=== PATIENT | female | born 1980 | race Caucasian/White ===

== ENCOUNTER 2021-08-24 03:38 | Emergency (ER) | payer BC, SELFPAY ==
--- NOTE | ~2021-08-24 | XR_ITS ---
EXAMINATION: XR chest 2V EXAM DATE: 08/24/2021 04:21 INDICATION: Chest pressure, pain. TECHNIQUE: Frontal and lateral projections of the chest obtained and reviewed. There is no prior mera dy for comparison. FINDINGS: The lungs are clear. There are no pleural effusions. The cardiomediastinal silhouette is within normal limits. There is no pneumothorax suspected. The bones and soft tissues are unremarkab le. IMPRESSION: No acute cardiopulmonary findings. Reviewed, dictated and finalized at location A. SUSTAIN[employer] SPECIALIST
[2021-08-24 03:41] VITALS: BP 126/85; PULSE 79; RESP 18; TEMP 36.3; O2SAT 100
--- NOTE | 2021-08-24 03:49 | ECG_ITS ---
Measurements Intervals [place] Rate: 77 P: 23 [place]: 126 QRS: 52 QRSD: 82 T: 41 QT: 340 QTc: 386 Interpretive Statements SINUS RHYTHM BASELINE WANDER- II, III NORMAL ECG Electronically Signed On 08-24-2021 7:21:58 [employer]IOR [employer] WRITER by Marlo Jordan D.O.
[2021-08-24 04:25] LABS: Basophils Absolute Auto 0.1 K/mm3 (0.0-0.1); Basophils Percent Auto 0.6 % (0.2-1.2); Eosinophils Absolute Auto 0.2 K/mm3 (0-0.3); Hematocrit 48.2 % (37.0-47.0); Hemoglobin 16.5 g/dL (12.0-15.0); Immature Granulocyte Absolute 0.02 K/mm3 (0.00-0.031); Immature Granulocyte Percent A 0.2 % (0-0.5); Lymphocytes Absolute Auto 1.56 K/mm3 (0.9-3.2); Lymphocytes Percent Auto 17.3 % (18.3-44.2); Mean Corpuscular HGB Conc 34.2 g/dl (32-36); Mean Corpuscular Hemoglobin 29.8 pg (26-34); Mean Corpuscular Volume 87.2 fl (80-100); Mean Platelet Volume 9.1 fl (7.4-10.4); Monocytes Absolute Auto 0.6 K/mm3 (0.1-0.6); Monocytes Percent Auto 6.7 % (2.6-8.5); Neutrophils Absolute Auto 6.6 K/mm3 (1.3-6.7); Neutrophils Percent Auto 73.2 % (45.5-73.1); Platelet Count Result 378 k/mm3 (150-375); Red Blood Count 5.53 M/mm3 (4.2-5.4); Red Cell Distribution Width 13.2 % (11.5-14.5)
[2021-08-24 04:36] LABS: Partial Thromboplastin Time 28.8 SECONDS (22.3-36.8)
[2021-08-24 04:38] LABS: Alanine Aminotransferase 21 U/L (4-35); Albumin Level 4.2 g/dL (3.5-5.1); Alkaline Phosphatase 74 U/L (38-126); Anion Gap 5 mmol/L (8-16); Aspartate Amino Transferase 23 U/L (14-36); Bilirubin,Total 0.6 mg/dL (0.2-1.3); Blood Urea Nitrogen 10 mg/dL (7-17); Calcium 9.2 mg/dL (8.4-10.2); Carbon Dioxide 28 mmol/L (22-30); Chloride 105 mmol/L (98-107); Estimated Glomerular Filt Rate > 60; Glucose 131 mg/dL (65-110); Lipase 116 U/L (23-300); Potassium 4.2 mmol/L (3.4-5.0); Sodium 138 mmol/L (137-145)
[2021-08-24 04:49] LABS: Troponin I < 0.012 ng/mL (0.000-0.034)
[2021-08-24] MEDS: LIDOCAINE HCL 2% VISC SOLN 15 ML UDC 20 ML PO (05:08)
[2021-08-24] MEDS: MAG HYDROX/AL HYDROX/SIMETH 30 ML UDC PO (05:08)
[2021-08-24 05:11] LABS: D Dimer 0.27 ug/mL (<0.48)
[2021-08-24 05:43] VITALS: BP 136/95; PULSE 83; RESP 20; O2SAT 96
[2021-08-24] MEDS: KETOROLAC 15 MG/ML VIAL (*BKC) IV PUSH (06:34)
[2021-08-24 06:35] VITALS: BP 116/86; PULSE 80; RESP 20; O2SAT 99
--- NOTE | 2021-08-24 06:55 | ED.CHESTPAIN ---
HPI - Chest Pain General Chief Complaint: Chest Pain Stated Complaint: Chest pain Time Seen by Provider: 08/24/21 04:44 Source: patient History of Present Illness HPI narrative: Patient presents with epigastric and left-sided chest pain. Symptoms started last night symptoms described as a pressure sharp sensation. There are no clear aggravating or alleviating factors do not appear to be a positional component or association with food or diet. Pain does radiate to her back she denies cough or congestion denies recent fevers or lightheadedness denies any nausea or vomiting or diarrhea. She denies significant family history of cardiac disease history of bleeding or clotting disorders recent travel recent hospitalizations, family history of collagen disorders. Related Data Allergies Allergy/AdvReac Type Severity Reaction Status Date / Time iodine Allergy Unknown Skin Verified 08/24/21 03:55 irritation Contrast Media Allergy Intermediate UNKNOWN Uncoded 08/24/21 03:55 Review of Systems Review of Systems: CONSTITUTIONAL: Denies fever, chills, or sweats. EYES: Denies visual changes, redness, or discharge. ENT: Denies rhinorrhea, congestion, sore throat, or otalgia. CARDIOVASCULAR: Denies palpitations, or edema. RESPIRATORY: Denies cough or dyspnea. GASTROINTESTINAL: Denies nausea, vomiting, or diarrhea. GENITOURINARY: Denies dysuria or hematuria. SKIN: Denies rash or itching. MUSCULOSKELETAL: Denies back pain, joint pain, or myalgia. NEUROLOGIC: Denies headache, numbness, dizziness, or weakness. PSYCHIATRIC: Denies anxiety or depression. [facility] Past Medical History Medical History ADD (attention deficit disorder) RENZO (generalized anxiety disorder) GERD without esophagitis Insomnia Labral tear of shoulder Migraines Family History Family History Mother Diabetes mellitus Family history of bipolar disorder Grandparent Diabetes mellitus Hypertension Family history of cardiovascular disease Family history of malignant neoplasm of breast in first degree relative Father Hypertension Malignant neoplasm of prostate Social History Social History Smoking status: Former smoker Second hand tobacco smoke exposure: No Smoking end date: 10/04/07 Alcohol intake: current Alcohol use details: Barely. Substance use: never Substance use type: does not use Exam Narrative: GENERAL: Well-appearing, well-nourished, and in no acute distress. HEAD: Normocephalic, atraumatic. EYES: PERRLA and EOMI. ENT: Nares clear, no rhinorrhea or epistaxis. Mucous membranes moist. NECK: Supple. No masses. No JVD CHEST: Clear to auscultation. No respiratory distress. No wheezes rales or rhonchi HEART: Regular rate and rhythm. No murmur heard. Normal peripheral pulses. ABDOMEN: Soft, nontender, nondistended, normal active bowel sounds. EXTREMITIES: Normal range of motion. No edema. SKIN: Warm, dry, no rash. NEURO: No focal deficits. Alert and oriented x3. PSYCH: Normal mood and affect. Course Reevaluation(s) Reevaluation #1: Patient is resting comfortably has mild improvement in symptoms work-up and plan reviewed with patient. Patient comfortable with outpatient plan. Date: 08/24/21 Time: 06:58 Vital Signs Vital signs: Vital Signs Temperature 36.3 C L 08/24/21 03:41 Pulse Rate 79 08/24/21 03:41 Respiratory Rate 18 08/24/21 03:41 Blood Pressure 126/85 08/24/21 03:41 Pulse Oximetry 100 08/24/21 03:41 Temperature 36.3 C L 08/24/21 03:41 Pulse Rate 80 08/24/21 06:35 Respiratory Rate 20 08/24/21 06:35 Blood Pressure 116/86 08/24/21 06:35 Pulse Oximetry 99 08/24/21 06:35 MDM - Chest Pain MDM Narrative Medical decision making narrative: H&P as above, vss, pt looks clinically well, exam reassuring, labs unremarkable to inc
== END 2021-08-24 07:24 | disposition home or self-care (01) ==
PROVIDERS: Emergency Provider Emergency Medicine
DX: R07.89 Other chest pain (principal); K21.9 Gastro-esophageal reflux disease without esophagitis; Z87.891 Personal history of nicotine dependence
CPT/HCPCS: 36415; 71046; 80053; 83690; 84484; 85025; 85380; 85610; 85730; 93005; 96365; 96375; 99284; A9270; J0131; J1885